=== PATIENT | female | born 1980 | race Caucasian/White ===

== ENCOUNTER → 2017-02-26 | Outpatient (CLI) | payer BC ==
[~2017-02-26] MED LIST: CALC-342 PO; MULT1TAB79 PO; OMEG10002 PO; PROB1TAB19 PO; URSO1TAB10 PO
== END | disposition home or self-care (01) ==
LOC: C.PATHSPEC 17:51
PROVIDERS: ATTEND Obstetrics & Gynecology
DX: N84.1 Polyp of cervix uteri (principal)